=== PATIENT | male | born 1980 | race Caucasian/White ===

== ENCOUNTER 2017-01-17 09:26 | Emergency (ER) | payer BC ==
[2017-01-17] MEDS ORDERED: HYDROMORPHONE HCL INJ/PF 2 MG/ML AMPULE IM ONE (09:42)
[2017-01-17] MEDS ORDERED: ONDANSETRON 4 MG TAB.RAPDIS SL ONE (09:42)
[2017-01-17] MEDS ORDERED: KETOROLAC TROMETHAMINE 60 MG/2 ML SDV IM ONE (09:42)
[2017-01-17] MEDS ORDERED: NORMAL SALINE 1000 ML 1,000 ML IV PRN (09:42)
--- NOTE | 2017-01-17 09:44 | ER Document Report ---
ED Medical Screen (RME) - General Chief Complaint: Flank Pain Stated Complaint: ABOMINAL PAIN Time seen by provider: 09:43 Mode of Arrival: Ambulatory Information source: Patient TRAVEL OUTSIDE OF THE [place] IN LAST 30 DAYS: No - HPI Patient complains to provider of: left flank pain Onset: Yesterday Onset/Duration: Gradual, Persistent Quality of pain: Sharp, Stabbing Severity: Severe Pain Level: 5 Associated Symptoms: Nausea Exacerbated by: Denies Relieved by: Denies Similar symptoms previously: Yes - kidney stone one year Recently seen / treated by doctor: No Notes: 01/17/17 09:44 36-year-old male presents to the emergency room complaining of left-sided flank pain which is sharp and stabbing in nature, with pressure, nausea, denies vomiting or diarrhea, no fever or chills, symptoms are similar to a kidney stone that he had approximately one year ago but slightly worse - Related Data Allergies/Adverse Reactions: No Known Allergies Allergy (Unverified 03/01/15 20:46) Past Medical History Renal/ Medical History: Reports: Hx Kidney Stones. Denies: Hx Peritoneal Dialysis Physical Exam - Vital signs Vitals: Temp Pulse Resp BP Pulse Ox 97.3 F 73 20 143/106 H 97 01/17/17 09:31 01/17/17 09:31 01/17/17 09:31 01/17/17 09:31 01/17/17 09:31 Course - Vital Signs Vital signs: Temp Pulse Resp BP Pulse Ox 97.3 F 73 20 143/106 H 97 01/17/17 09:31 01/17/17 09:31 01/17/17 09:31 01/17/17 09:31 01/17/17 09:31
--- NOTE | 2017-01-17 10:27 | ER Document Report ---
ED GI/ - General Chief Complaint: Flank Pain Stated Complaint: ABDOMINAL PAIN Mode of Arrival: Ambulatory Information source: Patient TRAVEL OUTSIDE OF THE [place] IN LAST 30 DAYS: No - HPI Patient complains to provider of: Abdominal pain, Flank pain Onset: This morning Timing/Duration: Sudden Quality of pain: Cramping, Pressure Severity at maximum: Severe Severity in ED: Moderate Context: denies: Bad food, Lifting, Out of the country travel, Recent trauma Location: [place], Left flank Exacerbated by: Denies Relieved by: Denies Similar symptoms previously: Yes - KIDNEY STONES, BUT THIS IS A LITTLE DIFFEENT Recently seen / treated by doctor: No - Related Data Allergies/Adverse Reactions: No Known Allergies Allergy (Verified 01/17/17 10:56) Home Medications: Current Home Medications Testosterone Cypionate [Testosterone Cypionate] 1 ml IM Q7D 01/17/17 [History] Past Medical History - General Information source: Patient - Social History Smoking Status: Former Smoker Cigarette use (# per day): No Chew tobacco use (# tins/day): No Frequency of alcohol use: None Drug Abuse: None Lives with: Spouse/Significant other Family History: Reviewed & Not Pertinent Patient has suicidal ideation: No Patient has homicidal ideation: No - Past Medical History Cardiac Medical History: Reports: None Pulmonary Medical History: Reports: None EENT Medical History: Reports: None Neurological Medical History: Reports: None Endocrine Medical History: Reports: None Renal/ Medical History: Reports: Hx Kidney Stones. Denies: Hx Peritoneal Dialysis Malignancy Medical History: Reports None GI Medical History: Reports: None Musculoskeltal Medical History: Reports None Psychiatric Medical History: Reports: None Surgical Hx: Negative Review of Systems - Review of Systems Constitutional: No symptoms reported. denies: Chills, Fever EENT: No symptoms reported Cardiovascular: No symptoms reported Respiratory: No symptoms reported Gastrointestinal: See HPI, Nausea Genitourinary: See HPI Male Genitourinary: No symptoms reported Musculoskeletal: No symptoms reported Skin: No symptoms reported Neurological/Psychological: No symptoms reported Physical Exam - Vital signs Vitals: Temp Pulse Resp BP Pulse Ox 97.3 F 73 20 143/106 H 97 01/17/17 09:31 01/17/17 09:31 01/17/17 09:31 01/17/17 09:31 01/17/17 09:31 Interpretation: Hypertensive - General General appearance: Alert, Anxious In distress: Mild - HEENT Head: Normocephalic Eyes: Normal Ears: Normal Nasal: Normal Mouth/Lips: Normal Mucous membranes: Normal - Respiratory Respiratory status: No respiratory distress - Cardiovascular Rhythm: Regular - Abdominal Inspection: Normal, Obese - Back Back: Normal, CVA tenderness - LEFT - Extremities General upper extremity: Normal inspection General lower extremity: Normal inspection - Neurological Neuro grossly intact: Yes Cognition: Normal Orientation: AAOx4 - Psychological Associated symptoms: Normal affect, Normal mood - Skin Skin Temperature: Warm Skin Moisture: Dry Skin Color: Normal Skin Turgor: Elastic Course - Re-evaluation Re-evalutation: 01/17/17 11:58 Patient reports pain much improved. Results of laboratory and radiographic studies discussed. Strategies for minimizing stone formation discussed, importance of adequate hydration emphasized. 01/17/17 12:04 Prescriptions for antinausea and narcotic pain meds offered the patient for when necessary use, patient declined. - Vital Signs Vital signs: Temp Pulse Resp BP Pulse Ox 97.3 F 73 20 143/106 H 97 01/17/17 09:31 01/17/17 09:31 01/17/17 09:31 01/17/17 09:31 01/17/17 09:31 - Laboratory Result Diagrams: 01/17/17 09:50 01/17/17 09:50 Laboratory results interpreted by me: 01/17/17 01/17/17 01/17/17 09:50 09:50 10:00 WBC 11.4 H RBC 6.03 H RDW 14.2 H Total Bilirubin 1.6 H Urine Protein 30 H Urine Blood SMALL H - Diagnostic Test Radiology reviewed: Image reviewed, Reports reviewed Discharge - Discharge Clinical Impression: Ureterolithiasis Condition: Stable Disposition: HOME, SELF-CARE Instructions: Kidney Stone ([facility]) Additional Instructions: DRINK PLENTY OF FLUIDS. AVOID EXCESIVE INTAKE OF CAFFEINE-CONTAINING BEVERAGES. IF YOU DO DRINK ANY CAFFEINE, FOLLOW IT WITH PLENTY OF WATER. RETURN TO E.R. OR FOLLOW UP WITH YOUR PRIMARY CARE PROVIDER IF PROBLEMS.
[2017-01-17 11:02] LABS: AMORPHOUS SEDIMENT,URINE TRACE /HPF; APPEARANCE,URINE TURBID; BILIRUBIN,URINE NEGATIVE (NEGATIVE); GLUCOSE, URINE NEGATIVE (NEGATIVE); KETONES,URINE NEGATIVE (NEGATIVE); LEUKOCYTE ESTERASE,URINE NEGATIVE (NEGATIVE); NITRITE,URINE NEGATIVE (NEGATIVE); PROTEIN,URINE 30 mg/dL (NEGATIVE); URINE SPECIFIC GRAVITY 1.026; UROBILINOGEN,URINE NEGATIVE mg/dL (<2.0)
[2017-01-17 11:06] LABS: ABSOLUTE BASOPHILS # (AUTO) 0.1 10^3/uL (0.0-0.2); ABSOLUTE EOSINOPHILS # (AUTO) 0.1 10^3/uL (0.0-0.6); ABSOLUTE LYMPHOCYTES (AUTO) 2.4 10^3/uL (0.5-4.7); ABSOLUTE NEUT (AUTO) 7.9 10^3/uL (1.7-8.2); BASOPHILS % (AUTO) 0.7 % (0-2); EOSINOPHILS % (AUTO) 1.1 % (0-6); HEMATOCRIT 50.5 % (37.9-51.0); HEMOGLOBIN 16.7 g/dL (13.5-17.0); HGB HCT DIFFERENCE -0.4; LYMPHOCYTES % (AUTO) 20.7 % (13-45); MEAN CORPUSCULAR HEMOGLOBIN 27.7 pg (27.0-33.4); MEAN CORPUSCULAR HGB CONC 33.1 g/dL (32.0-36.0); MEAN CORPUSCULAR VOLUME 84 fl (80-97); MONOCYTES % (AUTO) 8.7 % (3-13); RED BLOOD COUNT 6.03 10^6/uL (4.35-5.55); RED CELL DISTRIBUTION WIDTH 14.2 % (11.5-14.0); SEGMENTED NEUTROPHILS % (AUTO) 68.8 % (42-78); WHITE BLOOD COUNT 11.4 10^3/uL (4.0-10.5)
[2017-01-17 11:23] LABS: ALANINE AMINOTRANSFERASE 38 U/L (21-72); ALBUMIN 4.5 g/dL (3.5-5.0); ALKALINE PHOSPHATASE 75 U/L (38-126); ANION GAP 15 (5-19); ASPARTATE AMINO TRANSFERASE 27 U/L (17-59); BILIRUBIN,DIRECT 0.3 mg/dL (0.0-0.4); BILIRUBIN,TOTAL 1.6 mg/dL (0.2-1.3); BLOOD UREA NITROGEN 14 mg/dL (7-20); CALCIUM 9.7 mg/dL (8.4-10.2); CARBON DIOXIDE 22 mmol/L (22-30); CHLORIDE 106 mmol/L (98-107); CREATININE RESULT 1.04 mg/dL (0.52-1.25); GLUCOSE 88 mg/dL (75-110); LIPASE 46.3 U/L (23-300); POTASSIUM 4.7 mmol/L (3.6-5.0); SODIUM 143.2 mmol/L (137-145); TOTAL PROTEIN 7.5 g/dL (6.3-8.2)
[2017-01-17 12:24] VITALS: BP 118/59
== END 2017-01-17 12:24 | disposition home or self-care (01) ==
LOC: ER 09:26
DX: N13.2 Hydronephrosis with renal and ureteral calculous obstruction (principal); Z87.891 Personal history of nicotine dependence
CPT/HCPCS: 99284; 96372; 96360; 36415; 87086; 83690; 85025; 80053; 81001; 76380; J1885; S0119; J1170; J7030